=== PATIENT | male | born 1990 | race African-American/Black ===

== ENCOUNTER 2024-01-13 21:15 | Emergency (ER) | payer OTHER ==
[~2024-01-13] VITALS: Ht 175.3 cm; Wt 111.0 kg
[2024-01-13 21:56] VITALS: BP 131/73; PULSE 77; RESP 17; TEMP 98.2; O2SAT 96
[2024-01-13] MEDS: KETOROLAC 15MG/ML VIAL IM ONE (22:00)
== END 2024-01-13 23:42 | disposition home or self-care (01) ==
LOC: ER 21:15
DX: M25.532 Pain in left wrist (principal)
CPT/HCPCS: 73110; 99283; J1885